=== PATIENT | male | born 1975 | race Hispanic/Latino ===

== ENCOUNTER 2017-03-26 22:41 | Emergency (ER) | payer SELFPAY ==
[2017-03-26] MEDS ORDERED: Morphine 4 MG/ML VIAL ONE (23:21)
[2017-03-26] MEDS ORDERED: Ketamine 50 mg/ml Inj (10 ml) IV ONE (23:32)
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
[2017-03-27 01:03] VITALS: TEMP 98.5
[2017-03-27 02:10] VITALS: BP 137/85; PULSE 104; RESP 18
[2017-03-27 02:25] VITALS: O2SAT 97
--- NOTE | 2017-03-27 08:42 | CT ---
PROCEDURE: CT HEAD WITHOUT CONTRAST. HISTORY: ETOH, head injury COMPARISON: None available. TECHNIQUE: Axial computed tomography images were obtained through the head/brain without intravenous contrast. Radiation dose: Total exam DLP = 816.92 mGy-cm. This CT exam was performed using one or more of the following dose reduction techniques: Automated exposure control, adjustment of the mA and/or kV according to patient size, and/or use of iterative reconstruction technique. FINDINGS: HEMORRHAGE: No intracranial hemorrhage. BRAIN: Normal wray-white matter differentiation and density are appreciated throughout the cerebrum and cerebellum with the brainstem appearing unremarkable as well. There is no mass effect. There is no suspicious extra-axial fluid collection in the midline brain anatomy appears diffusely unremarkable. VENTRICLES: Unremarkable. No hydrocephalus. CALVARIUM: No destructive bony lesion or displaced fracture identified including through the skullbase. PARANASAL SINUSES: Mild bilateral ethmoid sinus disease identified. MASTOID AIR CELLS: Unremarkable as visualized. No inflammatory changes. OTHER FINDINGS: None. IMPRESSION: Unremarkable unenhanced head CT as per above. Incidental trace bilateral ethmoid sinus disease. No fracture identified throughout the calvarium or skullbase grossly.
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
--- NOTE | 2017-03-27 12:01 | RAD ---
PROCEDURE: Radiographs of the Left Shoulder HISTORY: s/p fall, deformity COMPARISON: No prior. FINDINGS: BONES: An anterior dislocation of the humerus is seen at the left shoulder without definite humeral or glenoid fracture identified. No destructive bony lesion. JOINTS: The acromioclavicular joint appears intact although an old healed fracture of the mid diaphysis of the left clavicle identified. Anterior inferior dislocation of the humeral head is signal to the glenoid process. SOFT TISSUES: Normal. OTHER FINDINGS: None. IMPRESSION: Anterior dislocation left humerus. No fracture appreciated on an acute basis. Chronic healed fracture left clavicle.
--- NOTE | 2017-03-27 13:02 | RAD ---
PROCEDURE: Radiographs of the Left Shoulder HISTORY: post-reduction COMPARISON: Left shoulder radiographs 03/26/2017 23:12 p.m.. FINDINGS: BONES: No interval acute fracture with chronic healed fracture of left clavicle again evident. JOINTS: Adequate reduction of the humerus is appreciated at the glenohumeral joint. SOFT TISSUES: Normal. OTHER FINDINGS: None. IMPRESSION: Adequate reduction of glenohumeral joint as discussed above. No interval fracture identified.
== END 2017-03-27 02:35 | disposition home or self-care (01) ==
LOC: H.ER 22:41
DX: S02.2XXA Fracture of nasal bones, initial encounter for closed fracture (principal); S02.81XA Fracture of other specified skull and facial bones, right side, initial encounter for closed fracture; S43.402A Unspecified sprain of left shoulder joint, initial encounter; Y04.0XXA Assault by unarmed brawl or fight, initial encounter; Y92.89 Other specified places as the place of occurrence of the external cause; F10.129 Alcohol abuse with intoxication, unspecified; J34.2 Deviated nasal septum
CPT/HCPCS: 70450; 70486; 73030; 90471; 90715; 96374; 99284; J2270